=== PATIENT | male | born 1950 | race Caucasian/White ===

== ENCOUNTER 2025-07-26 06:17 | Day surgery (SDC) | payer OTHER, SELFPAY ==
[2025-07-26] VITALS (19 sets, daily range): BP systolic 140–170; BP diastolic 57–103; BMI 31.0
[2025-07-26] MEDS: LOW STRENGTH ASPIRIN 81 MG PO (07:16)
[2025-07-26 07:26] LABS: Hematocrit 36.8 % (39.0-52.0); Hemoglobin 12.4 g/dL (13.0-18.0); Mean Corp Hgb Conc. 33.7 g/dL (33.0-37.0); Mean Corpuscular Volume 89.8 fL (80.0-94.0); Platelet Count 214 10^3/uL (130-400); Red Cell Dist. Width 14.4 % (11.5-14.5)
[2025-07-26 08:12] LABS: Blood Urea Nitrogen 21 mg/dl (9-20); Calcium 9.4 mg/dl (8.4-10.2); Carbon Dioxide 26 mmol/L (22-30); Chloride 103 mmol/L (98-107); Estimated Creatinine Clearance 85 ml/min; Glucose 140 mg/dl (70-99); Potassium 3.7 mmol/L (3.5-5.1); Sodium 140 mmol/L (135-145); eGFR > 60.00
[2025-07-26 10:42] LABS: Glucose - Point of Care 166 mg/dl (70-99)
[2025-07-26] MEDS: NSS 1000 IV (10:47)
[2025-07-26] MEDS: LIPITOR 40 MG PO (11:16)
[2025-07-26] MEDS: ZYLOPRIM 300 MG PO (11:16)
[2025-07-26] MEDS: NORVASC 5 MG PO (11:16)
[2025-07-26] MEDS: COZAAR 100 MG PO (11:16)
[2025-07-26] MEDS: FLOMAX 0.4 MG PO (11:16)
[2025-07-26] MEDS: PLAVIX 600 MG PO (12:30)
--- NOTE | 2025-07-26 13:03 | ITS.CL.CATH ---
Adult Literacy Instructor - Catheterization
Cardiac Catheterization
Procedure Report:
LEFT HEART CATHETERIZATION
Date of Procedure: July 26, 2025
Procedures performed:
1: Coronary angiography
2: Left ventriculography
Primary Care Physician: Dr. Kelby Jean
Primary Poultry Inspector: Dr. Sina Russell
INDICATION: The patient is a 75-year-old man with a past medical history significant for coronary artery disease status post LAD and circumflex stenting in the past, hypertension, diabetes, and gout who presents with crescendo angina.
ACCESS: The patient was prepped and draped in usual sterile fashion. A 6 Lao sheath was placed in the left radial artery using the Seldinger over the wire technique.
HEMODYNAMIC FINDINGS (mmHg):
LV(s/d,EDP): 140/9, 21
Ao(s/d,m): 140/70, 98
ANGIOGRAPHIC FINDINGS:
Single-plane Left Ventriculography in ALLEN Projection: Preserved LV systolic function with no clear regional wall motion abnormalities. Visually estimated ejection fraction at 50 to 55%. No significant mitral regurgitation.
Coronary Angiography:
Dominance: Right
Left Main: Short, medium caliber. Appears widely patent.
Left Anterior Descending: The left anterior descending artery is a medium caliber vessel that has diffuse proximal calcification associated with at least a 50-60% true ostial stenosis. This is followed by a smooth 70 to 80% stenosis in the proximal
vessel just before the previously placed mid LAD stent. The stent has diffuse 30% in-stent restenosis. The distal LAD has moderate diffuse luminal irregularities with progressive small vessel disease at the apex. There is 1 major diagonal branch
that is relatively small caliber and jailed by the previously placed mid LAD stent. This vessel has a smooth 70 to 80% mid stenosis and a very small caliber vessel. All vessels have normal resting flow.
Left Circumflex: The left circumflex is a medium caliber nondominant system that gives rise to 1 major branching obtuse marginal branch. The proximal circumflex has diffuse 30% disease. The previously placed stent is widely patent with no
significant in-stent restenosis. The distal vessel courses the lateral apex and has severe small vessel disease that is new compared to circumflex intervention in 2007. Despite this there is normal distal flow and all vessels.
Right Coronary: The right coronary artery is a medium caliber dominant vessel. There is a smooth proximal 40 to 50% stenosis at the first bend. This is followed by a long area of 70% disease in the mid RCA. The distal vessel is patent in the AV
groove. The posterior descending artery is a medium caliber vessel and has diffuse proximal and mid small vessel disease that is new compared to prior angiography. There is a medium caliber posterior left ventricular branch that also has diffuse
proximal 50% stenosis which is new compared to 2007. Despite this the distal vessels have RAQUEL-3 flow.
Fluoroscopy Time (min): 7.7
Radiation Dose (mGy): 634
DAP (Gy.cm2): 52
Closure device: None. A TR band was applied for hemostasis at the right wrist.
Complications: None.
ASSESSMENT:
1: Multivessel obstructive coronary artery disease. There is significant small vessel distal disease in both the right and the distal circumflex. There is also ostial/proximal LAD disease which is obstructive and has progressed from prior
angiography here in 2007.
2: Low normal to preserved LV systolic function. No significant mitral regurgitation.
CONCLUSIONS and RECOMMENDATIONS:
1: Formal CT surgical evaluation for CABG given his multivessel coronary disease and diabetes. Given his poor targets with distal small vessel disease in the circumflex and right coronary arteries, he is not an optimal surgical candidate due to his
diffuse distal disease. That said, he does have ostial/proximal LAD disease and therefore I feel a formal CT surgical consultation is san prior to proceeding with any intervention. Given the fact that he had angina yesterday with light activity I
feel this should be done urgently as an inpatient at [facility] today.
Omar Beckett M.D.
Copy to: Dr. Kelby Jean, Dr. Sina Russell
--- NOTE | 2025-07-26 13:22 | PTCARENOTE ---
Pt to laboratory technology teacher 1 report given to Katherine WILLS. Pt is pain free at this time pt able to walk to bathroom without any problems.
--- NOTE | 2025-07-26 13:22 | ITS.CL.ANGIO ---
Patient Day Coordinator - Angioplasty
Angioplasty
Procedure Report:
LEFT HEART CATHETERIZATION
Date of Procedure: July 26, 2025
Procedures performed:
1: Percutaneous coronary intervention of the right coronary artery with placement of 2 drug-eluting stents (3.0 x 26 mm [place] in the midportion postdilated at high pressure with a 3.25 mm diameter noncompliant balloon and a 3.5 x 12 mm [place] in the
proximal portion)
2: Percutaneous coronary intervention of the left anterior descending artery with placement of a drug-eluting stent stent (3.0 x 26 mm [place] post dilated with a 3.25 mm diameter noncompliant balloon at high pressure in the ostium/proximal vessel)
Primary Care Physician: Dr. Kelby Jean
Primary Breaker Layer: Dr. Sina Russell
INDICATION: The patient is a 75-year-old man with a past medical history significant for coronary artery disease status post LAD and circumflex stenting, hypertension, and diabetes who underwent diagnostic cardiac catheterization earlier today for
crescendo angina. Cath revealed multivessel obstructive coronary disease and he was seen by CT surgery for possible CABG. In light of his anatomy with poor distal targets after heart team discussion we have elected to proceed with multivessel PCI.
The patient was pretreated with aspirin earlier today and was given a loading dose of clopidogrel 600 mg prior to the procedure.
ACCESS: The patient was prepped and draped in usual sterile fashion. A 6 [place] sheath was placed in the right radial artery using the Seldinger over the wire technique.
HEMODYNAMIC FINDINGS (mmHg):
LV(s/d,EDP): Valve not crossed
Ao(s/d,m): 158/71, 105
ANGIOGRAPHIC FINDINGS:
Coronary Angiography:
Please refer to full diagnostic study and report from earlier today.
Percutaneous Coronary Intervention (PCI): The patient was pretreated with aspirin and clopidogrel. Unfractionated heparin was given. A 6 [place] AL 0.75 guiding catheter was used to engage the right coronary artery. A Hi-Torque floppy wire was
easily advanced across the diseased segment and into the distal PDA. Predilation of the mid lesion was performed with a 2.25 x 20 mm balloon. Next a 3.0 x 26 mm [place] drug-eluting stent was deployed at 14 boogie. The stent was postdilated with a 3.25
mm diameter noncompliant balloon at 16 boogie. This was done in a distal to proximal fashion taking care to stay within the stented margins. Next, a 3.5 x 12 mm [place] stent was used to primarily stent the proximal lesion with a stent deployed at 18
boogie for 45 seconds.
FINAL RESULT: 0% in-stent residual stenosis in both stents with an outstanding angiographic result and normal flow in all distal vessels.
PCI of the LAD: I then turned my attention to the left coronary system. A 6 [place] XB 3.0 guiding catheter was used to engage the left main. The Hi-Torque floppy wire was advanced into the circumflex for protection. A short BMW wire was advanced
down the LAD. Predilation was performed with the 2.25 x 20 mm balloon which showed no non dilatable lesions. Next a 3.0 x 26 mm [place] was deployed at 14 boogie. The stent was postdilated with a 3.25 mm diameter noncompliant balloon at 16 boogie
distally, 18 boogie in the midportion, and 18 boogie at the ostial segment. There was no significant plaque shift in the circumflex and the ostium appeared completely covered.
FINAL RESULT: 0% in-stent residual stenosis in both stents with an outstanding angiographic result and normal flow in all distal vessels. No plaque shift into the ostial circumflex.
Fluoroscopy Time (min): 11.2
Radiation Dose (mGy): 1754
DAP (Gy.cm2): 79.6
Closure device: None. A TR band was applied for hemostasis at the right wrist.
Complications: None.
ASSESSMENT:
1: Successful PCI of the proximal and mid right coronary artery with placement of 2 drug-eluting stents as described above.
2: Successful PCI of the ostial/proximal LAD with placement of a drug-eluting stent as described above.
3: Residual distal RCA and distal circumflex small vessel disease not readily amenable to PCI or CABG.
CONCLUSIONS and RECOMMENDATIONS:
1: Routine post drug-eluting stent medical therapy and monitoring with dual antiplatelet therapy uninterrupted with aspirin 81 mg daily and clopidogrel 75 mg daily ideally for a year and aspirin 81 mg daily uninterrupted indefinitely.
2: Medical therapy for coronary artery disease, hypertension, and diabetes.
3: Clinical follow-up as scheduled.
Omar Beckett M.D.
[2025-07-26 14:21] LABS: ACT-LR - POC 227 Seconds (116-155)
[2025-07-26 14:58] LABS: ACT-LR - POC > 397 Seconds (116-155)
[2025-07-26 14:58] LABS: ACT-LR - POC > 397 Seconds (116-155)
--- NOTE | 2025-07-26 15:20 | PTCARENOTE ---
Received pt from energy systems laboratory director. AOx3, no complaints of pain or discomfort. Bedrest until 1800, pt educated on restrictions and expected OOB time. Son at bedside. SB on tele monitor, VSS. Call kelley within reach.
[2025-07-26 15:36] LABS: Glucose - Point of Care 123 mg/dl (70-99)
--- NOTE | 2025-07-26 16:48 | CM ---
spoke to pt in room, he is pre vindep, lives alone in a 2 story home with 6 steps toenter. he denies any dc planning neds or dme's. plan is for dc to home when medically stable.
[2025-07-26 21:17] LABS: Glucose - Point of Care 174 mg/dl (70-99)
[2025-07-26] MEDS: TYLENOL 650 MG PO (21:26)
[2025-07-26] MEDS: PROTONIX 40 MG PO (21:26)
[2025-07-26] MEDS: GLUCOTROL 10 MG PO (21:26)
--- NOTE | 2025-07-27 00:27 | PTCARENOTE ---
Pt. has no complaints of chest pain/discomfort this shift, VSS, NSR - SB with PAC's at baseline on the monitor. Pt. does have pauses at times, approx 2-2.5 sec, with questionable P-waves/dropped complexes (? 2nd degree HB versus blocked PAC's).
Pt. asymptomatic. Strips shown to Andrews Bliss, labs added on for AM, monitor for now. Left radial and right groin cath site dressings CDI without drainage or hematoma. Pt. resting quietly.
[2025-07-27 01:32] VITALS: BP 134/64
[2025-07-27 01:50] LABS: Hematocrit 33.3 % (39.0-52.0); Hemoglobin 11.4 g/dL (13.0-18.0); Mean Corp Hgb Conc. 34.2 g/dL (33.0-37.0); Mean Corpuscular Volume 87.2 fL (80.0-94.0); Platelet Count 182 10^3/uL (130-400); Red Cell Dist. Width 14.5 % (11.5-14.5)
[2025-07-27 02:13] LABS: Blood Urea Nitrogen 16 mg/dl (9-20); Calcium 8.9 mg/dl (8.4-10.2); Carbon Dioxide 25 mmol/L (22-30); Chloride 106 mmol/L (98-107); Estimated Creatinine Clearance 98 ml/min; Glucose 128 mg/dl (70-99); Magnesium 1.2 mg/dl (1.6-2.3); Potassium 3.6 mmol/L (3.5-5.1); Sodium 139 mmol/L (135-145); eGFR > 60.00
[2025-07-27] MEDS: MAGNESIUM SULFATE 50 IV (02:38)
[2025-07-27 04:26] VITALS: BP 148/71
[2025-07-27] MEDS: TYLENOL 650 MG PO (04:32)
--- NOTE | 2025-07-27 05:40 | PTCARENOTE ---
Pt. developed headache after IV magnesium shannon administered this morning. No neurological deficits present, vitals stable. Now refusing potassium PO supplements for fear this will make headache worse. Redirect / education attempted, pt. still
refuses. Andrews Bliss notified, instructed to re-attempt when pt. has breakfast tray available.
--- NOTE | 2025-07-27 08:00 | PTCARENOTE ---
report received from previous RN at change shift. Pt OOB in chair resting comfortably, AAOX3. denies pain at this time. SR on telemetry with pacs and pvcs. +pulses, no edema. pt on room air, lung sounds clear. active bowel sounds. voiding without
difficulty. groin and radial site intact. see worklist for full nursing assessment and interventions. pt updated on plan of care. pt anxious for discharge today
[2025-07-27 08:31] VITALS: BP 128/76
[2025-07-27 08:33] LABS: Glucose - Point of Care 134 mg/dl (70-99)
[2025-07-27] MEDS: ZYLOPRIM 300 MG PO (08:34)
[2025-07-27] MEDS: NORVASC 5 MG PO (08:34)
[2025-07-27] MEDS: ASPIR LOW (ENTERIC COATED) 81 MG PO (08:34)
[2025-07-27] MEDS: ACTOS 30 MG PO (08:34)
[2025-07-27] MEDS: LIPITOR 40 MG PO (08:34)
[2025-07-27] MEDS: GLUCOTROL 10 MG PO (08:35)
[2025-07-27] MEDS: ORETIC 25 MG PO (08:35)
[2025-07-27] MEDS: COZAAR 100 MG PO (08:35)
[2025-07-27] MEDS: FLOMAX 0.4 MG PO (08:35)
[2025-07-27] MEDS: PLAVIX 75 MG PO (08:35)
[2025-07-27] MEDS: KCL 40 MEQ PO (08:35)
[2025-07-27 08:57] LABS: Glycohemoglobin (HgbA1c) 7.4 % (4.0-5.6)
--- NOTE | 2025-07-27 09:01 | W.PN.CARDCBS ---
Addendum entered and electronically signed by Baudilio Davalos MD 07/27/25 09:21:
I saw and examined the patient.
The Bottom Stainer's note was reviewed and I agree with the note.
Comment: Briefly, 75-year-old man with known CAD and prior remote PCI who presented for invasive coronary angiography given worsening chest discomfort and exertional dyspnea which were concerning for unstable angina. He was found to have
three-vessel coronary disease and after discussion with CT surgery decision was made to proceed with percutaneous intervention to the LAD and left circumflex arteries.
Patient is resting comfortably today in the IVU. He is not reporting any cardiac symptoms including no chest discomfort or dyspnea.
Telemetry reviewed showing sinus rhythm, sinus arrhythmia and blocked PACs. No sustained arrhythmias, high-grade AV block or significant pauses noted.
No evidence of decompensated heart failure based on history or physical exam
Agree with aspirin/Plavix, high intensity statin and amlodipine as antianginal
Eventual cardiac rehab
Stable for discharge from my perspective with follow-up to his primary grout machine tender Osmani Beckett
Original Note:
Today's Communication / Plan
-
post MV PCI
DAPT ASA/Plavix
Replete lytes and recheck labs in 1 week
home today
Impression / Plan
-
Primary Care Physician: Dr. Kelby Jean
Primary Metal Engraver: Dr. Sina Russell (Switching to Osmani Beckett MD)
75-year-old man with a past medical history significant for coronary artery disease status post LAD and circumflex stenting, hypertension, and diabetes who underwent diagnostic cardiac catheterization earlier today for crescendo angina. Cath
revealed multivessel obstructive coronary disease and he was seen by CT surgery for possible CABG. In light of his anatomy with poor distal targets after heart team discussion we have elected to proceed with multivessel PCI. The patient was
pretreated with aspirin earlier today and was given a loading dose of clopidogrel 600 mg prior to the procedure.
Impression:
CAD with crescendo angina
Prior PCI LAD, LCx ',
s/p PCI RCA mid and prox x 2 ANDREY, and PCI LAD x 1 ANDREY 07/26/25
Hypomagnesium
HTN
HLD
DM2
GERD
RBBB
congenital limb defect, Right arm
Plan:
post cath with MV CAD, reviewed images with CT surgery not amenable to surgery d/t poor targets
brought back to lab via R fem artery post PCI RCA x 2 and LAD x 1
feels good, denies cp
tele SR with PAC's
Rad site stable, Fem site soft, mild ecchymosis
Mg 1.2 this am, repleted with IV mg, K 3.6, will replete to keep K >4, Mg >2
Repeat BMP/Mg in 1 week
DAPT ASA/Plavix
LDL 60, continue atorvastatin 40mg daily, goal <55
DM - A1c 7.6%, continue glipizide, pioglitazone, hold metformin 48hrs, SSI while in hospital
Activity restrictions reviewed
Cardiac rehab c/s
f/u groin check Thursday
continue cardiac care with Dr. Beckett
home today
07/26/25 Procedures performed:
1: Percutaneous coronary intervention of the right coronary artery with placement of 2 drug-eluting stents (3.0 x 26 mm [place] in the midportion postdilated at high pressure with a 3.25 mm diameter noncompliant balloon and a 3.5 x 12 mm [place] in the
proximal portion)
2: Percutaneous coronary intervention of the left anterior descending artery with placement of a drug-eluting stent stent (3.0 x 26 mm [place] post dilated with a 3.25 mm diameter noncompliant balloon at high pressure in the ostium/proximal vessel)
Progress Note - Metal Engraver
Subjective
Date of Service: July 27, 2025
denies cp, sob
Objective
Labs:
07/27/25 01:39
07/27/25 01:39
Labs
Hgb 11.4 g/dL (13.0-18.0) L 07/27/25 01:39
Hct 33.3 % (39.0-52.0) L 07/27/25 01:39
Plt Count 182 10^3/uL (130-400) 07/27/25 01:39
Sodium 139 mmol/L (135-145) 07/27/25 01:39
Potassium 3.6 mmol/L (3.5-5.1) 07/27/25 01:39
BUN 16 mg/dl (9-20) 07/27/25 01:39
Creatinine 0.7 mg/dL (0.7-1.3) 07/27/25 01:39
Glucose 128 mg/dl (70-99) H 07/27/25 01:39
Vital Signs and I&O:
Vital Signs
Temp Pulse Resp BP Pulse Ox
98.5 F 92 18 128/76 95
07/27/25 01:36 07/27/25 08:34 07/27/25 01:36 07/27/25 08:34 07/27/25 01:36
Vital Signs
Temp Pulse Resp BP Pulse Ox
98.5 F 92 18 128/76 95
07/27/25 01:36 07/27/25 08:34 07/27/25 01:36 07/27/25 08:34 07/27/25 01:36
Intake & Output
07/25/25 07/26/25 07/27/25 07/28/25
06:59 06:59 06:59 06:59
Intake Total 480 / 480
Output Total 1000 / 1000
Balance -520 / -520
Physical Exam
Physical Exam
NAD, AOx3
S1, S2, RRR
CTAB, non labored, no wheeze
SNTND Bsx4
L rad site c/d/i good pulse
R fem site c/d/i, soft, mild eccymosis
[2025-07-27 11:04] VITALS: BP 126/68
--- NOTE | 2025-07-27 12:19 | W.DS.TRANS ---
DC Summary - Advanced Registered Nurse
-
Discharge Instructions:
Discharge Diagnosis/Procedures Angioplasty with stent to RCA x 2, LAD x 1
Diet Low Cholesterol,Diabetic, Carb Controlled
Driving Restrictions No driving for 24 hours
Blood Work check bmp/Magnesium in 1 week
Other Services Cardiac Rehab
Instructions:
Stand-Alone Forms: DC Instructions- Cath/EP Lab
Changes to Home Medications: Yes
Discharge Medications:
DC Medications w/original date entered in [employer]
allopurinol 300 mg tablet 300 mg PO DAILY 07/26/25
amlodipine 5 mg tablet 5 mg DAILY 07/26/25
aspirin 81 mg tablet,delayed release 81 mg DAILY 07/26/25
atorvastatin 40 mg tablet 40 mg DAILY 07/26/25
glipizide 10 mg tablet 10 mg PO BID 07/26/25
losartan 100 mg-hydrochlorothiazide 25 mg tablet 100 tab PO DAILY 07/26/25
metformin 1,000 mg tablet 1,000 mg BID 07/26/25
pioglitazone 30 mg tablet 30 mg DAILY 07/26/25
tamsulosin 0.4 mg capsule 0.4 mg PO DAILY 07/26/25
clopidogrel 75 mg tablet 75 mg PO DAILY #90 tabs 07/27/25
pantoprazole 40 mg tablet,delayed release 40 mg PO HS #90 tabs 07/27/25
Home Medication Changes
new to plavix, stopped omeprazole new to protonix
Pending Results: No
[2025-07-27 18:44] LABS: Hepatitis C Antibody Negative (Negative)
== END 2025-07-27 13:16 | disposition home or self-care (01) ==
LOC: CATH 06:17
PROVIDERS: Nurse Practitioner Adult Health; Physician Assistant Medical; ATTENDING PHYSICIAN Internal Medicine Interventional Cardiology
DX: M10.9 Gout, unspecified (principal); E11.9 Type 2 diabetes mellitus without complications; I10 Essential (primary) hypertension; I25.110 Atherosclerotic heart disease of native coronary artery with unstable angina pectoris; Z95.5 Presence of coronary angioplasty implant and graft; E78.5 Hyperlipidemia, unspecified; E83.42 Hypomagnesemia; I45.10 Unspecified right bundle-branch block; I49.1 Atrial premature depolarization; I49.3 Ventricular premature depolarization; I49.8 Other specified cardiac arrhythmias; K21.9 Gastro-esophageal reflux disease without esophagitis; Z79.02 Long term (current) use of antithrombotics/antiplatelets; Z79.82 Long term (current) use of aspirin; Z79.899 Other long term (current) drug therapy
CPT/HCPCS: 80048; 82962; 83036; 83735; 85027; 85347; 86803; 93005; 93458; C1725; C1760; C1769; C1874; C1887; C1894; C9600; Q9967